=== PATIENT | male | born 1945 | race Hispanic/Latino ===

== ENCOUNTER → 2018-12-10 | Outpatient (CLI) | payer OTHER ==
[~2018-12-10] MED LIST: ACET-2743 PO; ALBU8.5H8 IH; ASPI-555 PO; ATOR40TA69 PO; D-ME118S56 PO; LEVO500T89 PO; LISI-617 PO; METF-444 PO
== END | disposition home or self-care (01) ==
LOC: SHCH 13:36
PROVIDERS: ATTEND Internal Medicine Cardiovascular Disease
DX: I65.23 Occlusion and stenosis of bilateral carotid arteries (principal)
CPT/HCPCS: 93880

== ENCOUNTER 2019-03-11 06:49 | Day surgery (SDC) | payer OTHER ==
[2019-03-11] VITALS (7 sets, daily range): BP systolic 70–95; BP diastolic 44–64
[~2019-03-11] VITALS: Ht 160 cm; Wt 67.1 kg
[~2019-03-11 06:49] MED LIST changes: +SODIUM CHLORIDE 0.9% 1000ML 1,000 ML IV ONE
[2019-03-11] MEDS ORDERED: FERR325T29 PO (07:54)
[2019-03-11] MEDS ORDERED: CILO50TA PO (07:54)
[2019-03-11] MEDS ORDERED: PROPOFOL 1000 MG/100 ML 100 ML IV ONE (09:06)
[2019-03-11] MEDS ORDERED: PHENYLEPHRINE HCL 10 MG/ML 1ML VIAL IV ONE (09:30)
[2019-03-11] MEDS ORDERED: SODIUM CHLORIDE 0.9% 10 ML VIAL ONE (09:30)
== END 2019-03-11 10:10 | disposition home or self-care (01) ==
LOC: ENDO 06:49 → DAH 06:49 → ENDO 10:10
PROVIDERS: ATTEND Internal Medicine Gastroenterology
DX: D12.2 Benign neoplasm of ascending colon (principal); D12.5 Benign neoplasm of sigmoid colon; K29.50 Unspecified chronic gastritis without bleeding; K21.9 Gastro-esophageal reflux disease without esophagitis; D50.9 Iron deficiency anemia, unspecified; K44.9 Diaphragmatic hernia without obstruction or gangrene; K57.30 Diverticulosis of large intestine without perforation or abscess without bleeding; I25.10 Atherosclerotic heart disease of native coronary artery without angina pectoris; E78.5 Hyperlipidemia, unspecified; M19.90 Unspecified osteoarthritis, unspecified site; M81.0 Age-related osteoporosis without current pathological fracture; E11.22 Type 2 diabetes mellitus with diabetic chronic kidney disease; I12.9 Hypertensive chronic kidney disease with stage 1 through stage 4 chronic kidney disease, or unspecified chronic kidney disease; N18.9 Chronic kidney disease, unspecified; K25.9 Gastric ulcer, unspecified as acute or chronic, without hemorrhage or perforation; Z79.84 Long term (current) use of oral hypoglycemic drugs; Z79.899 Other long term (current) drug therapy; Z95.5 Presence of coronary angioplasty implant and graft
CPT/HCPCS: 43239; 45380; 45385; 82948 ×2; 88305; A4606; J2370; J2704; J7030

== ENCOUNTER → 2020-01-18 | Outpatient (CLI) | payer OTHER ==
[~2020-01-18] MED LIST changes: -ALBU8.5H8 IH; -ASPI-555 PO; +ASPI-556 PO; +CILO50TA PO; -D-ME118S56 PO; +FERR325T29 PO; -LEVO500T89 PO; -SODIUM CHLORIDE 0.9% 1000ML 1,000 ML IV ONE
== END | disposition home or self-care (01) ==
LOC: SHCH 15:39
PROVIDERS: ATTEND Internal Medicine Cardiovascular Disease
DX: I10 Essential (primary) hypertension (principal)
CPT/HCPCS: 93306; 93356

== ENCOUNTER → 2020-02-15 | Outpatient (CLI) | payer OTHER | END | disposition home or self-care (01) | LOC: SHCH 13:41 | PROVIDERS: ATTEND Internal Medicine Cardiovascular Disease | DX: R09.89 Other specified symptoms and signs involving the circulatory and respiratory systems (principal) | CPT/HCPCS: 93880 ==

== ENCOUNTER → 2022-06-07 | Outpatient (CLI) | payer OTHER ==
[~2022-06-07] MED LIST changes: -CILO50TA PO; +CILO50TA2 PO; -LISI-617 PO; +LISI5TAB21 PO
== END | disposition home or self-care (01) ==
LOC: SHCH 07:37
PROVIDERS: ATTEND Internal Medicine Cardiovascular Disease
DX: I70.1 Atherosclerosis of renal artery (principal); I71.40 Abdominal aortic aneurysm, without rupture, unspecified; I10 Essential (primary) hypertension; I70.0 Atherosclerosis of aorta; I70.8 Atherosclerosis of other arteries; Z95.828 Presence of other vascular implants and grafts
CPT/HCPCS: 93975; 93978

== ENCOUNTER → 2022-07-30 | Outpatient (CLI) | payer OTHER ==
[2022-07-30 13:03] LABS: ALBUMIN 3.4 g/dL (3.5-5.0); CREATININE 0.9 mg/dL (0.5-1.5); POTASSIUM 3.7 mmol/L (3.5-5.1); TOTAL PROTEIN, SERUM 6.8 g/dL (6.0-8.3)
== END | disposition home or self-care (01) ==
LOC: LAB 10:52
PROVIDERS: ATTEND Internal Medicine Cardiovascular Disease
DX: I10 Essential (primary) hypertension (principal)
CPT/HCPCS: 36415; 80053

== ENCOUNTER → 2022-08-13 | Outpatient (CLI) | payer OTHER ==
[~2022-08-13] MED LIST changes: +IOHEXOL 350 MG/ML 100ML INFUS..BTL IV ONE; +IOHEXOL-350 50ML VIAL IV ONE
[2022-08-13 10:36] LABS: CREATININE 0.9 mg/dL (0.5-1.5)
== END | disposition home or self-care (01) ==
LOC: RAH 09:41
PROVIDERS: ATTEND Internal Medicine Cardiovascular Disease
DX: Q27.1 Congenital renal artery stenosis (principal); I70.8 Atherosclerosis of other arteries; N32.89 Other specified disorders of bladder; M47.815 Spondylosis without myelopathy or radiculopathy, thoracolumbar region
CPT/HCPCS: 75635; 84520; 82565; 36415; Q9967 ×2

== ENCOUNTER → 2023-11-08 | Outpatient (CLI) | payer OTHER ==
[~2023-11-08] MED LIST changes: -IOHEXOL 350 MG/ML 100ML INFUS..BTL IV ONE; -IOHEXOL-350 50ML VIAL IV ONE
[2023-11-08] MEDS: REGADENOSON 0.4 MG/5 ML PF SYG IVP ONE (11:16)
== END | disposition home or self-care (01) ==
LOC: SHCH 08:23
PROVIDERS: ATTEND Internal Medicine Cardiovascular Disease
DX: I25.10 Atherosclerotic heart disease of native coronary artery without angina pectoris (principal); E11.9 Type 2 diabetes mellitus without complications; I10 Essential (primary) hypertension; R07.89 Other chest pain
CPT/HCPCS: 78452; 96374; 93017; J2785; A9500 ×2

== ENCOUNTER 2023-12-02 09:56 | Observation (INO) | payer OTHER ==
[2023-11-29 09:25] LABS: APPEARANCE,URINE CLEAR (CLEAR); BASOPHILS # (AUTO) 0.08 K/uL (0.00-0.20); BASOPHILS % (AUTO) 0.8 % (0.0-5.0); BILIRUBIN,URINE NEGATIVE (NEGATIVE); COLOR,URINE YELLOW (YELLOW); EOSINOPHILS # (AUTO) 0.51 K/uL (0.00-0.70); EOSINOPHILS % (AUTO) 5.3 % (0.0-8.0); GLUCOSE, URINE (UA) NEGATIVE (NEGATIVE); HEMATOCRIT 36.9 % (42-54); IMMATURE GRANULOCYTE ABSOLUTE 0.04 K/uL (0-1); KETONES,URINE NEGATIVE (NEGATIVE); LEUKOCYTE ESTERASE ,URINE NEGATIVE Leu/uL (NEGATIVE); LYMPHOCYTES # (AUTO) 1.8 K/uL (1.0-4.8); LYMPHOCYTES % (AUTO) 18.5 % (21.0-51.0); MEAN CORPUSCULAR HEMOGLOBIN 33.9 pg (27.0-33.0); MEAN CORPUSCULAR HGB CONC 33.1 g/dL (32.0-36.0); MEAN CORPUSCULAR VOLUME 102.5 fL (79-99); MONOCYTES # (AUTO) 0.5 K/uL (0.1-1.0); MONOCYTES % (AUTO) 5.1 % (3.0-13.0); NEUTROPHILS # (AUTO) 6.7 K/uL (1.8-7.7); NEUTROPHILS % (AUTO) 69.9 % (40.0-77.0); NITRATE,URINE NEGATIVE (NEGATIVE); OCCULT BLOOD,URINE NEGATIVE (NEGATIVE); PH,URINE 5.5 (5.0-8.0); PLATELET COUNT (AUTO) 273 K/uL (130-400); PROTEIN,URINE 30 mg/dL (NEGATIVE); RED CELL DISTRIBUTION WIDTH 13.9 % (11.0-15.5); UROBILINOGEN,URINE 0.2 mg/dL (0.2-1.0); WHITE BLOOD COUNT (AUTO) 9.6 K/uL (4.8-10.8)
[2023-11-29 09:28] LABS: ADD UA MICROSCOPIC YES
[2023-11-29 09:30] LABS: POTASSIUM 4.8 mmol/L (3.5-5.1)
[2023-11-29 09:31] LABS: INR <= 0.93 (0.85-1.15); PROTHROMBIN TIME 10.4 SEC (9.6-11.6)
[2023-11-29 09:32] LABS: PARTIAL THROMBOPLASTIN TIME 24.2 SEC (26.3-35.5)
[2023-11-29 09:49] VITALS: BP 130/59; PULSE 62; RESP 16
[2023-11-29 09:49] LABS: BACTERIA,URINE FEW /HPF (None Seen); MUCUS,URINE FEW LPF (None Seen); RBC,URINE 0-1 /HPF (0-1); SQUAMOUS EPITHELIAL CELL,UR RARE /HPF (0-2)
[2023-11-29 09:52] LABS: B-TYPE NATRIURETIC PEPTIDE 28 pg/mL (0-100)
[2023-12-02] VITALS (20 sets, daily range): BP systolic 88–146; BP diastolic 36–71; PULSE 62–78; RESP 14–18; O2SAT 95
[~2023-12-02] VITALS: Ht 160 cm; Wt 61.2 kg
[~2023-12-02 09:56] MED LIST changes: -ACET-2743 PO; +CILO100T3 PO; -CILO50TA2 PO; +CLOP75TA32 PO; -FERR325T29 PO; +METO-408 PO; +TYLENOL ARTHRITIS PO
[2023-12-02] MEDS: 0.9%NACL 1000ML 1,000 ML IV ONE (14:03)
[2023-12-02] MEDS ORDERED: SODIUM BICARB 50MEQ 50ML VIAL 50 ML ONE (14:33)
[2023-12-02] MEDS ORDERED: LIDOCAINE HCL 400MG/20ML VIAL ONE (14:33)
[2023-12-02] MEDS ORDERED: NITROGLYCERIN 50MG VIAL ONE (14:34)
[2023-12-02] MEDS ORDERED: IODIXANOL 320 MG/ML 100 ML VIAL ONE (14:34)
[2023-12-02] MEDS ORDERED: HEPARIN 10,000 UNIT/10ML (1,000 UNIT/ML) VIAL ONE (14:34)
[2023-12-02] MEDS ORDERED: MEPERIDINE-PF 25 MG/ML SYG ONE ×3 (15:13→16:43)
[2023-12-02] MEDS ORDERED: MIDAZOLAM HCL 1 MG/ML 2ML VIAL ONE ×3 (15:14→16:43)
[2023-12-02] MEDS ORDERED: NICARDIPINE 25MG INJ IV ONE (15:27)
[2023-12-02] MEDS ORDERED: HYDRALAZINE 20MG/ML VIAL ONE (16:49)
[2023-12-02] MEDS ORDERED: ACETAMINOPHEN 325 MG TAB PO PRN (17:30)
[2023-12-02] MEDS ORDERED: TYLENOL ARTHRITIS PO PRN (17:30)
[2023-12-02] MEDS ORDERED: DEXTROSE 50%-WATER 50 ML DISP.SYRIN IV PRN (17:30)
[2023-12-02] MEDS ORDERED: GLUCAGON 1MG KIT 1 MG ML IM PRN (17:30)
[2023-12-02] MEDS: ATROPINE 1MG SYG IVP ONE (20:44)
[2023-12-02] MEDS: INSULIN HUMULIN R 100 UNIT/ML 3ML SQ SCH (20:59)
[2023-12-02] MEDS: 0.9%NACL 1000ML 1,000 ML IV SCH (22:45)
[2023-12-02] MEDS: CILOSTAZOL 100 MG TAB PO SCH (22:45)
[2023-12-02] MEDS: ATORVASTATIN 40 MG TABLET PO SCH (22:45)
[2023-12-03 03:14] VITALS: BP 98/47; PULSE 80; RESP 18
[2023-12-03 03:55] LABS: HEMATOCRIT 31.8 % (42-54); MEAN CORPUSCULAR HEMOGLOBIN 34.7 pg (27.0-33.0); MEAN CORPUSCULAR HGB CONC 34.3 g/dL (32.0-36.0); MEAN CORPUSCULAR VOLUME 101.3 fL (79-99); RED BLOOD CELL COUNT(AUTO) 3.14 MIL/uL (4.50-6.20); RED CELL DISTRIBUTION WIDTH 13.9 % (11.0-15.5); WHITE BLOOD COUNT (AUTO) 10.3 K/uL (4.8-10.8)
[2023-12-03 04:33] LABS: ALBUMIN 2.4 g/dL (3.5-5.0); BILIRUBIN,TOTAL 0.4 mg/dL (0.2-1.0); CREATININE 0.9 mg/dL (0.5-1.3); POTASSIUM 3.8 mmol/L (3.5-5.1); TOTAL PROTEIN, SERUM 5.1 g/dL (6.0-8.3)
[2023-12-03 09:19] VITALS: BP 108/55; PULSE 85; RESP 18
[2023-12-03 09:20] VITALS: O2SAT 96
[2023-12-03] MEDS: ASPIRIN 81 MG EC TAB PO SCH (09:23)
[2023-12-03] MEDS: METOPROLOL SUCCINATE 25 MG TAB.SR.24H PO SCH (09:23)
[2023-12-03] MEDS: CLOPIDOGREL 75MG TAB PO SCH (09:23)
[2023-12-03] MEDS: LISINOPRIL 5 MG TABLET PO SCH (09:23)
[2023-12-03 12:18] VITALS: BP 189/58; PULSE 77; RESP 18
== END 2023-12-03 16:29 | disposition home or self-care (01) ==
LOC: DAH 09:56 → DAHIP 09:57 → DAH 09:57 → 2DH 20:14
PROVIDERS: ADMIT Internal Medicine Pulmonary Disease; ATTEND Internal Medicine Pulmonary Disease
DX: I74.5 Embolism and thrombosis of iliac artery (principal); I82.522 Chronic embolism and thrombosis of left iliac vein; I35.0 Nonrheumatic aortic (valve) stenosis; I70.8 Atherosclerosis of other arteries; I25.10 Atherosclerotic heart disease of native coronary artery without angina pectoris; E11.51 Type 2 diabetes mellitus with diabetic peripheral angiopathy without gangrene; F17.200 Nicotine dependence, unspecified, uncomplicated; I10 Essential (primary) hypertension; Z98.61 Coronary angioplasty status; Z79.899 Other long term (current) drug therapy
CPT/HCPCS: 80048; 83880; 85025; 85610; 85730 ×2; 81001; 36415 ×3; 71045; 93005; 75625; 37221; 37223; 85347 ×2; 82948 ×5; 76705; 80053; 85027; C1887 ×2; C1769 ×3; C1894 ×4; C1874; C1893 ×2; C1725; C1876 ×3; G0378 ×23; J3490 ×4; J7030; J0360; J1644 ×3; J2250 ×3; J2175 ×3; Q9967; A4215; A4223 ×3; A4222; A4221; A4663; A4216; A4606; 99156; 99157; J0461

== ENCOUNTER 2024-05-08 18:19 | Inpatient (IN) | payer OTHER ==
[~2024-05-08] VITALS: Ht 160 cm; Wt 63.1 kg
--- NOTE | 2024-05-08 18:34 | ERN ---
ED Note History of Present Illness Stated Complaint: FEVER Chief Complaint: Generalized Body Aches Time Seen by MD: 18:21 Time Seen by Midlevel: 18:21 Dictation: The patient is a 79-year-old male with a history of hypertension, diabetes, hyperlipidemia, BPH who presents to the emergency department with complaints of generalized body weakness, chills, body aches onset 2:30 p.m.. Patient's right reports she thought patient had a fever so she gave Tylenol and patient is started to sweat after a it. Patient denies any nausea, vomiting, diarrhea, cough, urinary discomfort, shortness of breath. Allergies: Coded Allergies: No Known Drug Allergies (Unverified Allergy, Unknown, 04/28/14) Home Meds Reported Medications [Tylenol Arthritis] No Conflict Check, 2 TAB PO AD PRN for PAIN 11/29/23 Cilostazol (Cilostazol) 100 Mg Tablet, 100 MG PO BID, TAB 11/29/23 Clopidogrel Bisulfate (Clopidogrel) 75 Mg Tablet, 75 MG PO AM, TAB 11/29/23 Metoprolol Succinate (Metoprolol Succinate) 25 Mg Tab.er.24h, 25 MG PO AM, TAB 11/29/23 Lisinopril (Lisinopril) 5 Mg Tablet, 5 MG PO AM, TAB 03/11/17 Aspirin (Aspir 81) 81 Mg Tablet.dr, 81 MG PO AM, TAB 03/11/17 Atorvastatin Calcium (LIPITOR) 40 Mg Tablet, 40 MG PO HS, TAB 03/11/17 Metformin HCl (Metformin HCl) 500 Mg Tablet, 500 MG PO BID, TAB 03/11/17 Past Medical History Past Medical History: Diabetes-Type II, High Cholesterol, Hypertension, Prostatitis Surgical History: Other Surgical History Other: ABDOMINAL SX. AND STENTS IN LEGS AND CAROTID. RN Note Reviewed/Agreed w/PFSH: Yes Review of System Dictation Constitutional: Negative for weight loss. Positive for fever, chills Eyes: Negative for injury, pain,redness, and discharge ENT: Negative for injury,pain or swelling Cardiovascular: Negative for chest pain, palpitations, and edema Respiratory: Negative for shortness of breath, cough, and wheezing, Abdomen/GI: Negative for abdominal pain, nausea, vomiting, diarrhea, and constipation Back: Negative for injury and pain : Negative for injury, bleeding and discharge MS/Extremity: Negative for injury and deformity Skin: Negative for rash, and discoloration Neuro: Negative for headache, numbness, tingling, and seizure positive for generalized weakness Psych: Negative for suicide ideation, homicidal ideation, and hallucinations Initial Vital Sign VS Vital Signs Date Time Temp Pulse Resp B/P (MAP) Pulse Ox O2 Delivery O2 Flow Rate FiO2 05/08/24 18:21 99.1 82 20 145/51 99 0 05/08/24 19:20 Room Air* 21 Physical Exam Dictation Vital Signs reviewed General Appearance: Alert, oriented x 3, no acute distress, well developed, nourished. Head and Face: non-traumatic. Eyes: PERRL, pink conjunctivas, eyelid no trauma, anterior chamber with arcus senilis. Ears: Pinnas intact and no signs of trauma or erythema ear canals clear and no discharge TM no erythema Nose: No discharge, no bleeding. Oropharynx: Mouth normal, tongue pink. pharynx clear,no erythema, tonsils no exudates, no abscesses noted, mucous membrane moist Neck: Supple, non-tender, no thyromegaly, no masses, no JVD, no bruits Breast:Deferred Chest:No tenderness, no crepitus, no paradoxical movement, no retractions Lungs:Clear, well-ventilated, symmetric, no rales, no wheezing, no rhonchi, no stridor, good breath sounds bilaterally Heart: Regular rate, regular rhythm, no murmur, no gallops Vascular: no peripheral edema, Abdomen: Soft, positive bowel sounds, nondistended, no guarding, nontender, no rebound, no masses no hepatomegaly, no splenomegaly, no Morales's sign, no hernias. Rectal: Deferred Genital: Deferred Neurological: Normal speech, motor function intact, sensory function intact Musculoskeletal: Neck nontender, full range of motion, back nontender, full range of motion, Extremities: nontender, full range of motion Skin: Color pink, dry, no turgor, no rash, no lacerations, no abrasions, no contusions. Lymphatic: Deferred Results (Laboratory/Radiology) Laboratory/Radiology Laboratory Tests Test 05/08/24 18:45 05/08/24 18:58 05/08/24 19:48 White Blood Count 22.0 K/uL (4.8-10.8) H Red Blood Count 3.46 MIL/uL (4.50-6.20) L Hemoglobin 11.4 g/dL (14.0-18.0) L Hematocrit 34.4 % (42-54) L Mean Corpuscular Volume 99.4 fL (79-99) H Mean Corpuscular Hemoglobin 32.9 pg (27.0-33.0) Mean Corpuscular Hemoglobin Concent 33.1 g/dL (32.0-36.0) Red Cell Distribution Width 14.3 % (11.0-15.5) Platelet Count 257 K/uL (130-400) Mean Platelet Volume 9.2 fL (7.5-10.5) Immature Granulocyte % (Auto) 0.5 % (0-1) Neutrophils (%) (Auto) 71.1 % (40.0-77.0) Lymphocytes (%) (Auto) 3.3 % (21.0-51.0) L Monocytes (%) (Auto) 6.0 % (3.0-13.0) Eosinophils (%) (Auto) 18.7 % (0.0-8.0) H Basophils (%) (Auto) 0.4 % (0.0-5.0) Neutrophils # (Auto) 15.7 K/uL (1.8-7.7) H Lymphocytes # (Auto) 0.7 K/uL (1.0-4.8) L Monocytes # (Auto) 1.3 K/uL (0.1-1.0) H Eosinophils # (Auto) 4.11 K/uL (0.00-0.70) H Basophils # (Auto) 0.09 K/uL (0.00-0.20) Absolute Immature Granulocyte (auto 0.11 K/uL (0-1) Segmented Neutrophils % 88 % (40-70) H Band Neutrophils % 7 % (0-2) H Lymphocytes % (Manual) 3 % (22-44) L Monocytes % (Manual) 2 % (2-9) Nucleated Red Blood Cells 0.0 % (0.0-0.19) Differential Comment MANUAL DIFFERENTIAL White Cell Morphology Comment Platelet Morphology Comment ADEQUATE Red Blood Cell Morphology ANISO 1+ Sodium Level 135 mmol/L (136-145) L Potassium Level 4.0 mmol/L (3.5-5.1) Chloride Level 99 mmol/L (101-111) L Carbon Dioxide Level 26 mmol/L (21-32) Blood Urea Nitrogen 10 mg/dL (7-18) Creatinine 1.1 mg/dL (0.5-1.3) Glomerular Filtration Rate Calc 69 mL/min (>90) Random Glucose 150 mg/dL (70-105) H Lactic Acid Level 3.1 mmol/L (0.8-2.5) H Total Calcium 8.4 mg/dL (8.5-10.1) L Troponin I High Sensitivity 23 ng/L (4-75) B-Type Natriuretic Peptide 42 pg/mL (0-100) Procalcitonin 0.41 ng/mL (0.05-0.5) Influenza Type A Antigen Negative For Type A Influenza Type B Antigen Negative For Type B SARS-CoV-2 Antigen (Rapid) PRESUMPTIVE NEGATIVE Urine Color LIGHT-YELLOW (YELLOW) Urine Appearance CLEAR (CLEAR) Urine pH 5.5 (5.0-8.0) Urine Specific [place] 1.012 (1.001-1.031) Urine Protein 10 mg/dL (NEGATIVE) H Urine Glucose (UA) NEGATIVE mg/dL (NEGATIVE) Urine Ketones NEGATIVE mg/dL (NEGATIVE) Urine Occult Blood NEGATIVE (NEGATIVE) Urine Nitrate NEGATIVE (NEGATIVE) Urine Bilirubin NEGATIVE mg/dL (NEGATIVE) Urine Urobilinogen 0.2 mg/dL (0.2-1.0) Urine Leukocyte Esterase NEGATIVE Hans[place]/uL Urine RBC None /HPF (0-1) Urine WBC 0-1 /HPF (0-1) Urine Squamous Epithelial Cells RARE /HPF (0-2) Urine Bacteria None /HPF (None Seen) REASON: sob ORDERING PHYSICIAN: SHAE PATTON [facility] PROCEDURE: CXR1VW - CHEST 1VW CHEST 1VW HISTORY: Shortness of breath COMPARISON: 11/29/2023 FINDINGS: A frontal projection of the chest was obtained. Prominent interstitial markings are seen with possible superimposed infiltrates. The heart is normal in size. Degenerative changes are seen aortic calcifications are seen. IMPRESSION: 1. Prominent interstitial markings are seen with possible superimposed infiltrates. Labs Reviewed?: Yes EKG: (+) rhythm (Sinus rhythm), (+) AL (124), (+) QRS (93) EKG Comment: EKG 05/08/2024 1855 ventricular rate 86, regular rate and rhythm, PACs, nonspecific T-wave abnormalities, low voltage, no STEMI ED Course ED Course Orders Procedure Category Date Status Time Cbc With Differential LAB 05/08/24 Complete 18:29 Troponin I High LAB 05/08/24 Complete Sensitivity 18:29 Urinalysis Profile LAB 05/08/24 Complete 18:29 12 Lead Ekg Tracing- EKG 05/08/24 Resulted Technical 18:29 0.9%Nacl 1000ml (Ns PHA 05/08/24 In Process 1000ml) 18:30 Basic Metabolic Panel LAB 05/08/24 Complete 18:29 B-Type Natriuretic LAB 05/08/24 Complete Peptide 18:29 Chest 1vw RAD 05/08/24 Resulted 18:29 Covid19 (Sars Antigen LAB 05/08/24 Complete Rapid) 18:29 Influenza Type A & B, LAB 05/08/24 Complete Rapid 18:29 Lactic Acid LAB 05/08/24 Complete 18:29 Blood Cult TILA 05/08/24 In Process 19:25 Procalcitonin LAB 05/08/24 Complete 19:25 Ceftriaxone 2gm Vial PHA 05/08/24 Complete (Rocephin 2gm Inj) 19:30 0.9%Nacl 1000ml (Ns PHA 05/08/24 Complete 1000ml) 19:30 *Nursing CPOE 05/08/24 Transmitted Communication: 19:29 Manual Differential LAB 05/08/24 Complete 18:45 Azithromycin 500mg+Ns PHA 05/08/24 In Process 250ml (Azithromyci 20:30 Current Medications Medications (Trade) Dose Ordered Sig/Fletcher Route PRN Reason Start Time Stop Time Status Last Admin Dose Admin Azithromycin 250 ml @ 125 mls/hr ONCE ONCE IV 05/08/24 20:30 05/08/24 22:29 Ceftriaxone Sodium (Rocephin 2gm Inj) 2 gm ONCE ONCE IVPB 05/08/24 19:30 05/08/24 19:31 DC 05/08/24 19:42 Sodium Chloride 1,000 ml @ 0 mls/hr ONCE ONCE IV 05/08/24 19:30 05/08/24 19:31 DC 05/08/24 19:37 Sodium Chloride 1,000 ml @ 125 mls/hr ONCE ONCE IV 05/08/24 18:30 05/09/24 02:29 05/08/24 19:18 Vital Signs Date Time Temp Pulse Resp B/P (MAP) Pulse Ox O2 Delivery O2 Flow Rate FiO2 05/08/24 20:20 99.1 90 20 122/54 98 Room Air* 0 21 05/08/24 19:20 100.2 80 20 130/47 97 Room Air* 0 21 05/08/24 18:21 99.1 82 20 145/51 99 0 Medical Decision Making [facility] MDM: The patient is a 79-year-old male with a history of hypertension, diabetes, hyperlipidemia, BPH who presents to the emergency department with complaints of generalized body weakness, chills, body aches onset 2:30 p.m.. Patient's right reports she thought patient had a fever so she gave Tylenol and patient is started to sweat after a it. Patient denies any nausea, vomiting, diarrhea, cough, urinary discomfort, shortness of breath. Differential diagnosis: Sepsis, flu, pneumonia, UTI, electrolyte imbalance, dehydration, ACS CBC showed leukocytosis, microcytic anemia, chemistry showed mild hyponatremia, hypochloremia, lactic acid 3.1, urinalysis unremarkable, chest x-ray showed some pulmonary infiltrates. Patient will be admitted for further management. Started on Rocephin and azithromycin. Patient received2 L of fluids in the ER. Comorbidities: Diabetes, hyperlipidemia, hypertension, BPH Tests considered and not ordered secondary to shared decision making include: none Previous outside records reviewed: none Risk of complication and/or morbidity or mortality of patient management: The patient meets criteria for admission. Need for emergency major/minor surgery: No There are no social concerns with this patient. I independently interpreted the tests I ordered (labs, urinalysis, etc.). I discussed the case with the hospitalist for admission. Carole who accepts admission. I discussed the case with the following specialists: none. Historian: pateint. I independently interpreted imaging studies and EKGs that I ordered (US, CT, XR, EKG, etc.). External chart review: none. Medical management and examination interpretation discussions were had by me with other qualified healthcare professionals as indicated for the patient's care. DX & DISP Disposition: Inpatient Decision to Admit Date: May 08, 2024 Decision to Admit Time: 20:53 Departure Impression: Primary Impression: Sepsis Additional Impressions: Leukocytosis, Anemia, Hypochloremia, Hyponatremia, Weakness, Pneumonia, Elevated lactic acid level Condition: Stable Referrals: NIGEL LEON MD (PCP) I have reviewed the case, and I agree with, Diagnosis and Plan SHAE PATTON [facility] May 08, 2024 18:34
[2024-05-08 18:51] LABS: BASOPHILS # (AUTO) 0.09 K/uL (0.00-0.20); BASOPHILS % (AUTO) 0.4 % (0.0-5.0); EOSINOPHILS # (AUTO) 4.11 K/uL (0.00-0.70); EOSINOPHILS % (AUTO) 18.7 % (0.0-8.0); HEMATOCRIT 34.4 % (42-54); IMMATURE GRANULOCYTE ABSOLUTE 0.11 K/uL (0-1); LYMPHOCYTES # (AUTO) 0.7 K/uL (1.0-4.8); LYMPHOCYTES % (AUTO) 3.3 % (21.0-51.0); MEAN CORPUSCULAR HEMOGLOBIN 32.9 pg (27.0-33.0); MEAN CORPUSCULAR HGB CONC 33.1 g/dL (32.0-36.0); MEAN CORPUSCULAR VOLUME 99.4 fL (79-99); MONOCYTES # (AUTO) 1.3 K/uL (0.1-1.0); NEUTROPHILS # (AUTO) 15.7 K/uL (1.8-7.7); NEUTROPHILS % (AUTO) 71.1 % (40.0-77.0); PLATELET COUNT (AUTO) 257 K/uL (130-400); RED BLOOD CELL COUNT(AUTO) 3.46 MIL/uL (4.50-6.20); RED CELL DISTRIBUTION WIDTH 14.3 % (11.0-15.5)
--- NOTE | 2024-05-08 18:57 | EKG ---
[facility] Test Date: 2024-05-08 Test Time: 18:55:00 Pat Name: JOSUE MCCLELLAN Department: ED Room: Gender: M Title Coordinator: [id number] : 1945 Requested By: SHAE PATTON Order Number: [id number] Reading MD: Saqib Winter Measurements Intervals [place] Rate: 86 P: 99 NH: 124 QRS: 84 QRSD: 93 T: 128 QT: 435 QTc: 491 Interpretive Statements Sinus rhythm Atrial premature complexes Nonspecific T abnormalities, lateral leads Compared to ECG 11/29/2023 08:09:41 Atrial premature complex(es) now present T-wave abnormality still present Electronically Signed On 05-08-2024 19:09:26 CAPTAIN/AIRLINE PILOT by Saqib Winter Please click the below link to view image of tracing.
[2024-05-08 19:01] LABS: CREATININE 1.1 mg/dL (0.5-1.3)
[2024-05-08] MEDS: 0.9%NACL 1000ML 1,000 ML IV ONE ×2 (19:18→19:37)
[2024-05-08 19:26] LABS: B-TYPE NATRIURETIC PEPTIDE 42 pg/mL (0-100)
[2024-05-08 19:36] LABS: COVID19 (SARS ANTIGEN RAPID) PRESUMPTIVE NEGATIVE (NEGATIVE); INFLUENZA TYPE A Negative For Type A (NEGATIVE); INFLUENZA TYPE B Negative For Type B (NEGATIVE)
[2024-05-08] MEDS: CEFTRIAXONE 2GM VIAL IVPB ONE (19:42)
--- NOTE | 2024-05-08 19:50 | HMCIMG ---
CHEST 1VW HISTORY: Shortness of breath COMPARISON: 11/29/2023 FINDINGS: A frontal projection of the chest was obtained. Prominent interstitial markings are seen with possible superimposed infiltrates. The heart is normal in size. Degenerative changes are seen aortic calcifications are seen. IMPRESSION: 1. Prominent interstitial markings are seen with possible superimposed infiltrates.
[2024-05-08 19:55] LABS: BAND NEUTROPHILS % (MANUAL) 7 % (0-2); LYMPHOCYTES % (MANUAL) 3 % (22-44); MONOCYTES % (MANUAL) 2 % (2-9); SEGMENTED NEUTROPHILS % 88 % (40-70); TOTAL CELLS COUNTED 100
[2024-05-08 19:56] LABS: MAN.DIFF COMMENT-IMPRESSION MANUAL DIFFERENTIAL
[2024-05-08 20:07] LABS: PLATELET MORPHOLOGY COMMENT ADEQUATE
[2024-05-08 20:18] LABS: APPEARANCE,URINE CLEAR (CLEAR); BILIRUBIN,URINE NEGATIVE (NEGATIVE); COLOR,URINE LIGHT-YELLOW (YELLOW); GLUCOSE, URINE (UA) NEGATIVE (NEGATIVE); KETONES,URINE NEGATIVE (NEGATIVE); LEUKOCYTE ESTERASE ,URINE NEGATIVE Leu/uL (NEGATIVE); NITRATE,URINE NEGATIVE (NEGATIVE); OCCULT BLOOD,URINE NEGATIVE (NEGATIVE); PH,URINE 5.5 (5.0-8.0); PROTEIN,URINE 10 mg/dL (NEGATIVE); UROBILINOGEN,URINE 0.2 mg/dL (0.2-1.0)
[2024-05-08 20:19] LABS: ADD UA MICROSCOPIC YES
[2024-05-08 20:24] LABS: MUCUS,URINE RARE LPF (None Seen); SQUAMOUS EPITHELIAL CELL,UR RARE /HPF (0-2); WBC,URINE 0-1 /HPF (0-1)
[2024-05-08] MEDS: AZITHROMYCIN 500MG+NS 250ML 250 ML IV ONE (21:29)
[2024-05-08] MEDS ORDERED: acetaMINOPHEN 325 MG TAB PO PRN (21:30)
[2024-05-08] MEDS: cefTRIAXone 1G VIAL IVPB SCH (21:30)
[2024-05-08] MEDS ORDERED: ondanSETRON 4MG TABLET PO PRN (21:30)
[2024-05-08 23:50] VITALS: BP 116/58; PULSE 81; RESP 18; TEMP 98.4; O2SAT 98
[2024-05-09] VITALS (8 sets, daily range): BP systolic 113–143; BP diastolic 54–74; PULSE 75–124; RESP 18–19; TEMP 98.2–99.4; O2SAT 97
[2024-05-09 05:22] LABS: BASOPHILS # (AUTO) 0.09 K/uL (0.00-0.20); BASOPHILS % (AUTO) 0.5 % (0.0-5.0); EOSINOPHILS % (AUTO) 0.5 % (0.0-8.0); HEMATOCRIT 29.5 % (42-54); IMMATURE GRANULOCYTE ABSOLUTE 0.11 K/uL (0-1); LYMPHOCYTES # (AUTO) 1.8 K/uL (1.0-4.8); MEAN CORPUSCULAR HEMOGLOBIN 32.7 pg (27.0-33.0); MEAN CORPUSCULAR HGB CONC 32.5 g/dL (32.0-36.0); MEAN CORPUSCULAR VOLUME 100.3 fL (79-99); MONOCYTES # (AUTO) 0.9 K/uL (0.1-1.0); MONOCYTES % (AUTO) 4.7 % (3.0-13.0); NEUTROPHILS # (AUTO) 16.8 K/uL (1.8-7.7); NEUTROPHILS % (AUTO) 84.7 % (40.0-77.0); PLATELET COUNT (AUTO) 222 K/uL (130-400); RED BLOOD CELL COUNT(AUTO) 2.94 MIL/uL (4.50-6.20); RED CELL DISTRIBUTION WIDTH 14.3 % (11.0-15.5); WHITE BLOOD COUNT (AUTO) 19.8 K/uL (4.8-10.8)
[2024-05-09 05:46] LABS: ALBUMIN 2.4 g/dL (3.5-5.0); BILIRUBIN,TOTAL 0.3 mg/dL (0.2-1.0); CREATININE 0.8 mg/dL (0.5-1.3); MAGNESIUM 1.6 mg/dL (1.80-2.40); POTASSIUM 3.7 mmol/L (3.5-5.1); TOTAL PROTEIN, SERUM 5.4 g/dL (6.0-8.3)
[2024-05-09] MEDS: INSULIN LISpro 100 UNIT/ML 3ML SQ SCH (06:36)
[2024-05-09] MEDS: DOXYCYCLINE HYCLATE 100 MG TABLET PO SCH (08:35)
[2024-05-09] MEDS ORDERED: ASPI-1005 PO (08:37)
[2024-05-09] MEDS ORDERED: CLOP75TA32 PO (08:38)
[2024-05-09] MEDS ORDERED: METF-910 PO (08:38)
[2024-05-09] MEDS ORDERED: ATOR40TA71 PO (08:38)
[2024-05-09] MEDS ORDERED: METO-408 PO (08:46)
[2024-05-09] MEDS ORDERED: LISI5TAB21 PO (08:47)
[2024-05-09] MEDS ORDERED: CILO50TA2 PO (08:48)
--- NOTE | 2024-05-09 13:42 | HMCIMG ---
CT CHEST W/O CONTRAST HISTORY: Cough COMPARISON: None TECHNIQUE: Multiple sequential axial images of the chest were obtained from the thoracic inlet through upper abdomen. Patient was not given contrast through intravenous route. FINDINGS: There is nodular densities in the right midlung posteriorly measuring 10 mm may be related to pulmonary nodule versus infiltrates. COPD changes are seen. There is left lower lobe pulmonary nodule measuring 2. 2 x 2 centimeter. Bilateral lower lobe pulmonary infiltrates are seen with left more than right. Coronary arterial calcifications are seen. No pleural effusion or pericardial effusion is seen. There is no evidence of pneumothorax. There are normal size mediastinal and hilar lymph nodes. The heart is not enlarged. Degenerative changes of the thoracolumbar spine are present. There is no evidence of adrenal nodule. IMPRESSION: 1. There is nodular densities in the right midlung posteriorly measuring 10 mm may be related to pulmonary nodule versus infiltrates. COPD changes are seen. There is left lower lobe pulmonary nodule measuring 2. 2 x 2 centimeter. Bilateral lower lobe pulmonary infiltrates are seen with left more than right. Coronary arterial calcifications are seen. CT was performed with one or more following dose reduction techniques: automated exposure control, adjustment of the mA and kv according to patient's size, or use of a iterative reconstruction technique.
[2024-05-09] MEDS: SODIUM CHLORIDE 3% FOR INHALATION 4 ML/AMP VIAL.NEB IH ONE (14:29)
[2024-05-09] MEDS: CILOstazol 100 MG TAB PO SCH (17:32)
[2024-05-09] MEDS: metFORmin HCL 500 MG TAB.SR.24H PO SCH (20:58)
--- NOTE | 2024-05-09 23:20 | HP ---
HISTORY AND PHYSICAL DATE OF SERVICE: 05/08/2024 PRESENTING COMPLAINT: Fever and cough. HISTORY OF PRESENT ILLNESS: A 79-year-old male with history of chronic tobacco use, hypertension, diabetes mellitus, presented to the hospital with cough, fever and chills. The patient's T-max in the Emergency Room was 100.2. Symptoms started 3 days ago. Cough is productive of greenish sputum, but no hemoptysis or pleuritic pain. The patient's WBC on admission was 20,000. Chest x-ray shows infiltrates. No weight loss or night sweats. Denies sick contact. PAST MEDICAL HISTORY: * Hypertension. * Diabetes mellitus. * Dyslipidemia. * Obesity. * BPH. * Peripheral vascular disease. * Chronic tobacco use. PAST SURGICAL HISTORY: * Abdominal surgery. * Stenting of lower extremities. * Stenting of carotid artery. ALLERGIES: No known drug allergies. HOME MEDICATIONS: Reviewed. SOCIAL HISTORY: Denies alcohol use. Lives with . FAMILY HISTORY: Positive for diabetes mellitus. REVIEW OF SYSTEMS: CONSTITUTIONAL: Positive for fever, no chills, no weight loss or night sweats. EYES: No eye pain, no photophobia. HENT: No sore throat, no rhinorrhea or earache. NECK: No neck pain or neck swelling. RESPIRATORY: Positive for cough with greenish sputum. No hemoptysis or pleuritic pain. CARDIOVASCULAR: No chest pain, no palpitation or orthopnea. GASTROINTESTINAL: No nausea, vomiting or abdominal pain. GENITOURINARY: No dysuria, urgency or urinary frequency. CENTRAL NERVOUS SYSTEM: No headache, dyspnea or slurred speech. PSYCHIATRY: No depression. No suicidal ideation. MUSCULOSKELETAL: No joint pain or joint swelling. PHYSICAL EXAMINATION: GENERAL: Elderly male, awake, not in distress, afebrile to touch. VITAL SIGNS: Temperature 100.3, pulse 80, respiratory rate 20, BP 130/77. EYES: No icterus. Pupils equal and reactive. HENT: No oral thrush seen. Moist oral mucosa. NECK: Supple, no JVD or thyromegaly. LUNGS: Good air entry. No rales, no rhonchi. CARDIOVASCULAR: S1, S2 regular. No murmur heard. ABDOMEN: Full, soft, nontender. Bowel sound is present. CENTRAL NERVOUS SYSTEM: Awake, alert, oriented x 3. No focal deficits. SKIN: No rashes, no itchiness. LYMPHATIC: No peripheral lymphadenopathy. BACK: No deformity, no pressure ulcer. MUSCULOSKELETAL: No joint swelling, erythema or tenderness. LABORATORY DATA: Sodium 141, potassium 3.7, BUN 9, creatinine 0.8. WBC 20.0, hemoglobin 11.4, platelet 257. RADIOLOGY: Chest x-ray shows bilateral pulmonary interstitial marking. ASSESSMENT: A 79-year-old male presenting with fever and cough. CURRENT PROBLEMS: Include: * Sepsis. * Pneumonia. * Diabetes mellitus. * Hypertension. * Chronic tobacco use. * Leukocytosis. PLAN: * Admit the patient to medical floor. * Start the patient on ceftriaxone. * Start the patient on doxycycline. * Obtain CT of the chest without contrast. * Tylenol as needed for pain or fever. * Zofran as needed for nausea and vomiting. * ADA diet. * Insulin sliding scale. * Lovenox for DVT prophylaxis. TID: [id number] RECEIPT: [id number] [facility]
[2024-05-10] VITALS (7 sets, daily range): BP systolic 108–135; BP diastolic 56–70; PULSE 67–82; RESP 16–20; TEMP 98–99.5; O2SAT 97–98
[2024-05-10 05:42] LABS: HEMATOCRIT 28.9 % (42-54); MEAN CORPUSCULAR HEMOGLOBIN 31.6 pg (27.0-33.0); MEAN CORPUSCULAR HGB CONC 32.5 g/dL (32.0-36.0); MEAN CORPUSCULAR VOLUME 97.3 fL (79-99); RED BLOOD CELL COUNT(AUTO) 2.97 MIL/uL (4.50-6.20); RED CELL DISTRIBUTION WIDTH 14.5 % (11.0-15.5)
[2024-05-10 06:01] LABS: CREATININE 0.9 mg/dL (0.5-1.3); MAGNESIUM 1.6 mg/dL (1.80-2.40); POTASSIUM 3.4 mmol/L (3.5-5.1)
[2024-05-10] MEDS: metOPROLol sucCINATE 25 MG TAB.SR.24H PO SCH (09:01)
[2024-05-10] MEDS: LISINOPRIL 5 MG TABLET PO SCH (09:01)
[2024-05-10] MEDS: cloPIDOgrel 75MG TAB PO SCH (09:02)
[2024-05-10] MEDS: ASPIRIN 81MG CHEW TAB PO SCH (09:02)
[2024-05-10] MEDS: atorVAStatin 40 MG TABLET PO SCH (09:03)
--- NOTE | 2024-05-10 15:55 | PN ---
DATE OF SERVICE: 05/09/2024. INFECTIOUS DISEASE FOLLOWUP NOTE SUBJECTIVE: The patient is seen and examined at bedside today. The patient has no fever, no chills. No nausea, no vomiting, no abdominal pain. No bleeding tendency. No palpitation or orthopnea. No rashes or itchiness. Denies joint pain or joint swelling. PHYSICAL EXAMINATION: VITAL SIGNS: Temperature today, 97.6. EYES: No icterus. Pupils equal and reactive. HENT: No oral thrush seen. Moist oral mucosa. NECK: Supple, no JVD or thyromegaly. LUNGS: Good air entry. No rales, no rhonchi. CARDIOVASCULAR: S1, S2 regular. No murmur heard. ABDOMEN: Full, soft, nontender. Bowel sounds present. CENTRAL NERVOUS SYSTEM: Awake, alert, oriented x 3. No focal deficits. SKIN: No rashes, no itchiness. LYMPHATIC: No peripheral lymphadenopathy. BACK: No deformity, no pressure ulcer. ASSESSMENT: A 79-year-old male presented with fever and cough. CURRENT PROBLEMS: Include: * Sepsis. * Pneumonia. * Diabetes mellitus. * Hypertension. * Obesity. * Leukocytosis. * Chronic tobacco use. PLAN: * Continue ceftriaxone. * Continue doxycycline. * Continue pain management. * Continue antihypertensive. * Continue antidiabetic. * Monitor electrolytes. * The patient will follow up closely. TID: [id number] RECEIPT: [id number]
[2024-05-11] VITALS (9 sets, daily range): BP systolic 121–151; BP diastolic 56–75; PULSE 57–76; RESP 17–20; TEMP 98.4–99.5; O2SAT 97–98
[2024-05-11 05:02] LABS: HEMATOCRIT 29.7 % (42-54); MEAN CORPUSCULAR HEMOGLOBIN 32.2 pg (27.0-33.0); MEAN CORPUSCULAR HGB CONC 32.3 g/dL (32.0-36.0); MEAN CORPUSCULAR VOLUME 99.7 fL (79-99); RED BLOOD CELL COUNT(AUTO) 2.98 MIL/uL (4.50-6.20); RED CELL DISTRIBUTION WIDTH 14.2 % (11.0-15.5); WHITE BLOOD COUNT (AUTO) 9.6 K/uL (4.8-10.8)
[2024-05-11 05:34] LABS: CREATININE 0.8 mg/dL (0.5-1.3); MAGNESIUM 1.5 mg/dL (1.80-2.40); POTASSIUM 3.4 mmol/L (3.5-5.1)
--- NOTE | 2024-05-11 14:08 | CONS ---
CONSULT NOTE: A 79-year-old male with history of chronic tobacco use, hypertension, diabetes mellitus, presented to the hospital with cough, fever and chills. The patient's T-max in the Emergency Room was 100.2. Symptoms started 3 days ago. Cough is productive of greenish sputum, but no hemoptysis or pleuritic pain. The patient's WBC on admission was 20,000. Chest x-ray shows infiltrates. No weight loss or night sweats. Denies sick contact. CT scan of the chest showed nodular density in the mid lung 1.0 cm. There was left lower lobe nodule 2.2 cm. There was bilateral infiltration with sign of COPD. This patient improved significantly and is sitting in the side of the bed with family member in the room. Patient continued to have cough not much productive according to him. There is no blood in the phlegm. PAST MEDICAL HISTORY: * Hypertension. * Diabetes mellitus. * Dyslipidemia. * Obesity. * BPH. * Peripheral vascular disease. * Chronic tobacco use. PAST SURGICAL HISTORY: * Abdominal surgery. * Stenting of lower extremities. * Stenting of carotid artery. ALLERGIES: No known drug allergies. HOME MEDICATIONS: Reviewed. SOCIAL HISTORY: Denies alcohol use. Lives with . FAMILY HISTORY: Positive for diabetes mellitus. REVIEW OF SYSTEMS: CONSTITUTIONAL: Positive for fever, no chills, no weight loss or night sweats. EYES: No eye pain, no photophobia. HENT: No sore throat, no rhinorrhea or earache. NECK: No neck pain or neck swelling. RESPIRATORY: Positive for cough with greenish sputum. No hemoptysis or pleuritic pain. CARDIOVASCULAR: No chest pain, no palpitation or orthopnea. GASTROINTESTINAL: No nausea, vomiting or abdominal pain. GENITOURINARY: No dysuria, urgency or urinary frequency. CENTRAL NERVOUS SYSTEM: No headache, dyspnea or slurred speech. PSYCHIATRY: No depression. No suicidal ideation. MUSCULOSKELETAL: No joint pain or joint swelling. PHYSICAL EXAMINATION: GENERAL: Elderly male, awake, not in distress, afebrile to touch. VITAL SIGNS: Temperature 100.3, pulse 80, respiratory rate 20, BP 130/77. EYES: No icterus. Pupils equal and reactive. HENT: No oral thrush seen. Moist oral mucosa. NECK: Supple, no JVD or thyromegaly. LUNGS: Good air entry. No rales, no rhonchi. CARDIOVASCULAR: S1, S2 regular. No murmur heard. ABDOMEN: Full, soft, nontender. Bowel sound is present. CENTRAL NERVOUS SYSTEM: Awake, alert, oriented x 3. No focal deficits. SKIN: No rashes, no itchiness. LYMPHATIC: No peripheral lymphadenopathy. BACK: No deformity, no pressure ulcer. MUSCULOSKELETAL: No joint swelling, erythema or tenderness. Assessment 1. CT scan showing multiple nodule to the lung especially left more than right. There was also some infiltration on the lung which could be due to pneumonia. This patient is a heavy smoker. 2. COPD 3. Hypertension 4. Diabetes mellitus 5. Pneumonia 6. Peripheral vascular disease 7. Sepsis Plan 1.I reviewed the result of CT scan with the patient and family member. I told the patient that he have pneumonia at this time and he will be treated with antibiotic treatment. 2. This patient will be evaluated by CT scan or PET CT scan to be done in 6-8 weeks. If the patient continues to have nodule then we will do biopsy at that time. Differential diagnosis for this patient could be pneumonia versus metastatic disease versus primary lung cancer especially with the patient history of smoking. 3. O2 to keep saturation more than 94% 4. Continue antibiotic treatment 5. Nebulized treatment with albuterol and Atrovent every 6 hours as needed 6. If this patient discharged to follow-up with me in the next Laboratory Tests Test 05/10/24 16:32 05/10/24 19:50 05/11/24 04:38 05/11/24 05:04 Whole Blood Glucose 112 MG/DL (70-110) H 157 MG/DL (70-110) H 123 MG/DL (70-110) H White Blood Count 9.6 K/uL (4.8-10.8) # Red Blood Count 2.98 MIL/uL (4.50-6.20) L Hemoglobin 9.6 g/dL (14.0-18.0) L Hematocrit 29.7 % (42-54) L Mean Corpuscular Volume 99.7 fL (79-99) H Mean Corpuscular Hemoglobin 32.2 pg (27.0-33.0) Mean Corpuscular Hemoglobin Concent 32.3 g/dL (32.0-36.0) Red Cell Distribution Width 14.2 % (11.0-15.5) Platelet Count 225 K/uL (130-400) Mean Platelet Volume 9.9 fL (7.5-10.5) Nucleated Red Blood Cells 0.0 % (0.0-0.19) Sodium Level 140 mmol/L (136-145) Potassium Level 3.4 mmol/L (3.5-5.1) L Chloride Level 105 mmol/L (101-111) Carbon Dioxide Level 27 mmol/L (21-32) Blood Urea Nitrogen 8 mg/dL (7-18) Creatinine 0.8 mg/dL (0.5-1.3) Glomerular Filtration Rate Calc 91 mL/min (>90) Random Glucose 130 mg/dL (70-105) H Total Calcium 8.0 mg/dL (8.5-10.1) L Magnesium Level 1.50 mg/dL (1.80-2.40) L Test 05/11/24 11:06 Whole Blood Glucose 169 MG/DL (70-110) H LAB RESULTS 05/11/24 11:06: Whole Blood Glucose 169H 05/11/24 04:38: White Blood Count 9.6#, Red Blood Count 2.98L, Hemoglobin 9.6L, Hematocrit 29.7L, Mean Corpuscular Volume 99.7H, Mean Corpuscular Hemoglobin 32.2, Mean Corpuscular Hemoglobin Concent 32.3, Red Cell Distribution Width 14.2, Platelet Count 225, Mean Platelet Volume 9.9, Nucleated Red Blood Cells 0.0, Sodium Level 140, Potassium Level 3.4L, Chloride Level 105, Carbon Dioxide Level 27, Blood Urea Nitrogen 8, Creatinine 0.8, Glomerular Filtration Rate Calc 91, Random Glucose 130H, Total Calcium 8.0L, Magnesium Level 1.50L ALVIN COOK MD May 11, 2024 14:08
[2024-05-11] MEDS ORDERED: PoTASSium chl 10% ELIXIR 20MEQ 20 MEQ/15 ML UDCUP PO PRN (14:30)
[2024-05-11] MEDS ORDERED: PoTASSium chloRIDE 20MEQ/100ML 100 ML IV PRN (14:30)
--- NOTE | 2024-05-11 15:15 | PN ---
INFECTIOUS DISEASE PROGRESS NOTE Date of Service: May 11, 2024 SUBJECTIVE: Patient was seen and examined at bedside in room 319. Patient is awake, alert and oriented x 3. Patient is sitting up on the bedside chair. Continues with productive cough. Sputum culture preliminary reports growing Gram-negative rods. We will follow up on the final cultures. Dr. Smiley has evaluated patient for pulmonary nodules. Patient continues on ceftriaxone and doxycycline. The WBC has trended down to a normal level of 9.6. No reports of fever, temperature is 98.6. We will plan to discharge patient to home today. PHYSICAL EXAM EYES: Anicteric. Pupils equal and reactive. HENT: No oral thrush seen, moist Oral mucosa NECK: Supple, no JVD or thyromegaly. LUNGS: Good air entry. No rales, no rhonchi. CARDIOVASCULAR: S1, S2 regular. No murmur heard. ABDOMEN: Soft, non tender, bowel sounds present, no organomegaly CENTRAL NERVOUS SYSTEM: Awake, alert, oriented x 3. No focal deficits. SKIN: No rashes, no swelling. LYMPHATICS: No peripheral lymphadenopathy MUSCULOSKELETAL: No joint swelling, erythema or tenderness. EXTREMITIES: No cyanosis or clubbing BACK: No deformity, no pressure ulcer. GENITOURINARY: No dysuria or hematuria Vital Sign (Last 12 Hours) 05/11/24 05/11/24 05/11/24 05/11/24 04:00 07:30 08:00 11:49 Temp 98.8 98.8 98.6 Pulse 76 57 66 Resp 20 20 20 B/P (MAP) 150/75 143/56 121/57 Pulse Ox 97 99 98 99 O2 Delivery Room Air Room Air Room Air* Room Air O2 Flow Rate 0 FiO2 21 21 21 Intake & Output (last 24hrs) 05/10/24 05/10/24 05/11/24 15:00 23:00 07:00 Intake Total 50.0 ml Balance 50.0 ml LABS: Laboratory: Test 05/11/24 11:06 05/11/24 04:38 Range/Units Whole Blood Glucose 169 H 70-110 MG/DL White Blood Count 9.6 # 4.8-10.8 K/uL Red Blood Count 2.98 L 4.50-6.20 MIL/uL Hemoglobin 9.6 L 14.0-18.0 g/dL Hematocrit 29.7 L 42-54 % Mean Corpuscular Volume 99.7 H 79-99 fL Mean Corpuscular Hemoglobin 32.2 27.0-33.0 pg Mean Corpuscular Hemoglobin Concent 32.3 32.0-36.0 g/dL Red Cell Distribution Width 14.2 11.0-15.5 % Platelet Count 225 130-400 K/uL Mean Platelet Volume 9.9 7.5-10.5 fL Nucleated Red Blood Cells 0.0 0.0-0.19 % Sodium Level 140 136-145 mmol/L Potassium Level 3.4 L 3.5-5.1 mmol/L Chloride Level 105 101-111 mmol/L Carbon Dioxide Level 27 21-32 mmol/L Blood Urea Nitrogen 8 7-18 mg/dL Creatinine 0.8 0.5-1.3 mg/dL Glomerular Filtration Rate Calc 91 >90 mL/min Random Glucose 130 H 70-105 mg/dL Total Calcium 8.0 L 8.5-10.1 mg/dL Magnesium Level 1.50 L 1.80-2.40 mg/dL ASSESSMENT: Pneumonia. Sepsis. Leukocytosis, improving. Chronic tobacco use. Diabetes mellitus. Hypertension. PLAN: Discharge planning for tomorrow if stable. Continue ceftriaxone. Continue doxycycline p.o.. Glucometer checks a.c./hs and cover with insulin per sliding scale protocol. We will monitor electrolytes. This case was reviewed and discussed with my supervising physician and the above assessment and plan was formulated and agreed upon. ATTESTATION BY PHYSICIAN I have seen and examined the patient. I reviewed the documentation, medical dec ision making, and treatment plan as noted by the mid-level provider above. I agree with the findings and plan of care. DARIO WHITE MD, [facility] May 11, 2024 15:15
[2024-05-11] MEDS: PoTASSium chloRIDE 20MEQ ER 20 MEQ ERTAB PO PRN (17:30)
--- NOTE | 2024-05-11 23:48 | PN ---
INFECTIOUS DISEASE FOLLOWUP NOTE DATE OF SERVICE: 05/10/2024 SUBJECTIVE: The patient is seen and examined at bedside today. No fever or chills. Cough is better. No hemoptysis or pleuritic pain. Denied headache or dizziness. No palpitation or orthopnea. CT of the chest shows multiple peripheral nodules. Findings have been explained to the patient and the family at the bedside. PHYSICAL EXAMINATION: VITAL SIGNS: Temperature 96.9. EYES: No icterus. Pupils equal and reactive. HENT: No oral thrush seen. Moist oral mucosa. NECK: Supple, no JVD or thyromegaly. LUNGS: Good air entry. No rales, no rhonchi. CARDIOVASCULAR: S1, S2 regular. No murmur heard. ABDOMEN: Obese, soft, nontender. Bowel sounds present. CENTRAL NERVOUS SYSTEM: Awake, alert and oriented x 3. No focal deficits. SKIN: No rashes, no itchiness. LYMPHATIC: No peripheral lymphadenopathy. BACK: No deformity, no pressure ulcer. LABORATORY DATA: WBC 13.0, hemoglobin 9.4, platelet 234. Blood culture, no growth for 1 day. ASSESSMENT: A 79-year-old male presenting with cough, fever and chills. CURRENT PROBLEM: * Sepsis. * Pneumonia. * Diabetes mellitus. * Hypertension. * Lung nodules. * Chronic tobacco use. PLAN: * Continue ceftriaxone. * Continue doxycycline. * Oncology evaluation * Continue pain management. * Continue antidiabetic. * Monitor electrolytes. TID: [id number] RECEIPT: [id number]
[2024-05-12] MEDS: MAGNESIUM 2GM PREMIX 50ML 50 ML IV PRN (00:01)
[2024-05-12 04:00] VITALS: BP 146/86; PULSE 67; RESP 17; TEMP 98.6
[2024-05-12 05:54] LABS: BASOPHILS % (AUTO) 1.2 % (0.0-5.0); HEMATOCRIT 29.9 % (42-54); IMMATURE GRANULOCYTE ABSOLUTE 0.03 K/uL (0-1); LYMPHOCYTES % (AUTO) 24.8 % (21.0-51.0); MEAN CORPUSCULAR HGB CONC 32.8 g/dL (32.0-36.0); MEAN CORPUSCULAR VOLUME 97.7 fL (79-99); MONOCYTES # (AUTO) 0.5 K/uL (0.1-1.0); MONOCYTES % (AUTO) 6.6 % (3.0-13.0); PLATELET COUNT (AUTO) 252 K/uL (130-400); RED BLOOD CELL COUNT(AUTO) 3.06 MIL/uL (4.50-6.20); RED CELL DISTRIBUTION WIDTH 13.9 % (11.0-15.5)
[2024-05-12 06:01] LABS: CREATININE 0.8 mg/dL (0.5-1.3); MAGNESIUM 2.3 mg/dL (1.80-2.40); POTASSIUM 4.5 mmol/L (3.5-5.1)
[2024-05-12 08:00] VITALS: BP 116/59; PULSE 71; RESP 18; TEMP 99.2; O2SAT 98
[2024-05-12 12:00] VITALS: BP 136/64; PULSE 67; RESP 18; TEMP 98.2
--- NOTE | 2024-05-12 12:21 | PN ---
A 79-year-old male with history of chronic tobacco use, hypertension, diabetes mellitus, presented to the hospital with cough, fever and chills. The patient's T-max in the Emergency Room was 100.2. Symptoms started 3 days ago. Cough is productive of greenish sputum, but no hemoptysis or pleuritic pain. The patient's WBC on admission was 20,000. Chest x-ray shows infiltrates. No weight loss or night sweats. Denies sick contact. CT scan of the chest showed nodular density in the mid lung 1.0 cm. There was left lower lobe nodule 2.2 cm. There was bilateral infiltration with sign of COPD. This patient improved significantly and is sitting in the side of the bed with family member in the room. Patient continued to have cough not much productive according to him. There is no blood in the phlegm. There is plan to discharge this patient home today PHYSICAL EXAMINATION: GENERAL: Elderly male, awake, not in distress, afebrile to touch. VITAL SIGNS: Temperature 100.3, pulse 80, respiratory rate 20, BP 130/77. EYES: No icterus. Pupils equal and reactive. HENT: No oral thrush seen. Moist oral mucosa. NECK: Supple, no JVD or thyromegaly. LUNGS: Good air entry. No rales, no rhonchi. CARDIOVASCULAR: S1, S2 regular. No murmur heard. ABDOMEN: Full, soft, nontender. Bowel sound is present. CENTRAL NERVOUS SYSTEM: Awake, alert, oriented x 3. No focal deficits. SKIN: No rashes, no itchiness. LYMPHATIC: No peripheral lymphadenopathy. BACK: No deformity, no pressure ulcer. MUSCULOSKELETAL: No joint swelling, erythema or tenderness. Assessment 1. CT scan showing multiple nodule to the lung especially left more than right. There was also some infiltration on the lung which could be due to pneumonia. This patient is a heavy smoker. 2. COPD 3. Hypertension 4. Diabetes mellitus 5. Pneumonia 6. Peripheral vascular disease 7. Sepsis Plan 1.I reviewed the result of CT scan with the patient and family member. I told the patient that he have pneumonia at this time and he will be treated with antibiotic treatment. 2. This patient will be evaluated by CT scan or PET CT scan to be done in 6-8 weeks. If the patient continues to have nodule then we will do biopsy at that time. Differential diagnosis for this patient could be pneumonia versus metastatic disease versus primary lung cancer especially with the patient history of smoking. 3. O2 to keep saturation more than 94% 4. Continue antibiotic treatment 5. Nebulized treatment with albuterol and Atrovent every 6 hours as needed 6. If this patient discharged to follow-up with me in the next Vitals/Labs Vital Signs Date Time Temp Pulse Resp B/P (MAP) Pulse Ox O2 Delivery O2 Flow Rate FiO2 05/12/24 08:00 99.1 71 18 116/59 100 Room Air 21 05/11/24 19:58 0 Laboratory Tests 05/12/24 05:43 Medications Current Medications Sodium Chloride 1,000 ml @ 125 mls/hr ONCE ONCE IV Last administered on 05/08/24at 19:18; Start 05/08/24 at 18:30; Stop 05/09/24 at 02:29; Status DC Ceftriaxone Sodium 2 gm ONCE ONCE IVPB Last administered on 05/08/24at 19:42; Start 05/08/24 at 19:30; Stop 05/08/24 at 19:31; Status DC Sodium Chloride 1,000 ml @ 0 mls/hr ONCE ONCE IV Last administered on 05/08/24at 19:37; Start 05/08/24 at 19:30; Stop 05/08/24 at 19:31; Status DC Azithromycin 250 ml @ 125 mls/hr ONCE ONCE IV Last administered on 05/08/24at 21:29; Start 05/08/24 at 20:30; Stop 05/08/24 at 22:29; Status DC Ceftriaxone Sodium 1 gm Q24H IVPB Last administered on 05/11/24at 20:51; Start 05/08/24 at 21:30; Stop 05/18/24 at 21:29 Doxycycline Hyclate 100 mg BID PO Last administered on 05/12/24at 09:08; Start 05/09/24 at 09:00; Stop 05/19/24 at 08:59 Acetaminophen 650 mg Q4H PRN PO; Start 05/08/24 at 21:30; Stop 06/07/24 at 21:29 Ondansetron HCl 4 mg Q4H PRN PO; Start 05/08/24 at 21:30; Stop 06/07/24 at 21:29 Insulin Human Lispro INSULIN SLIDING SCAL... ACHS SQ; Start 05/09/24 at 07:30; Stop 06/08/24 at 07:29 Aspirin 81 mg DAILY PO Last administered on 05/12/24at 09:08; Start 05/10/24 at 09:00; Stop 06/09/24 at 08:59 Atorvastatin Calcium 40 mg DAILY PO Last administered on 05/12/24at 09:09; Start 05/10/24 at 09:00; Stop 06/09/24 at 08:59 Clopidogrel Bisulfate 75 mg DAILY PO Last administered on 05/12/24at 09:09; Start 05/10/24 at 09:00; Stop 06/09/24 at 08:59 Lisinopril 5 mg DAILY PO Last administered on 05/12/24at 09:09; Start 05/10/24 at 09:00; Stop 06/09/24 at 08:59 Metformin HCl 500 mg BID PO Last administered on 05/12/24at 09:09; Start 05/09/24 at 21:00; Stop 06/08/24 at 20:59 Metoprolol Succinate 25 mg DAILY PO Last administered on 05/12/24at 09:09; Start 05/10/24 at 09:00; Stop 06/09/24 at 08:59 Cilostazol 50 mg BIDAC PO Last administered on 05/12/24at 06:35; Start 05/09/24 at 16:30; Stop 06/08/24 at 16:29 Sodium Chloride 4 ml STK-MED ONCE IH Last administered on 05/09/24at 14:29; Start 05/09/24 at 14:11; Stop 05/09/24 at 14:12; Status DC Potassium Chloride 100 ml @ 100 mls/hr AD PRN IV; Start 05/11/24 at 14:30; Stop 06/10/24 at 14:29 Potassium Chloride 20 meq AD PRN PO; Start 05/11/24 at 14:30; Stop 06/10/24 at 14:29 Potassium Chloride 20 meq AD PRN PO Last administered on 05/12/24at 00:01; Start 05/11/24 at 14:30; Stop 06/10/24 at 14:29 Magnesium Sulfate 50 ml @ 0 mls/hr PROTOCOL PRN IV Last administered on 05/12/24at 00:01; Start 05/11/24 at 14:30; Stop 06/10/24 at 14:29 ALVIN COOK MD May 12, 2024 12:21
--- NOTE | 2024-05-12 19:53 | DS ---
DATE OF DISCHARGE: 05/12/2024 PRESENTING COMPLAINT: Cough and fever. HOSPITAL COURSE: This is a 79-year-old male with history of hypertension, diabetes mellitus, and chronic tobacco use, who presented to the hospital with cough and fever. The patient's cough is productive of greenish sputum. The patient was found with sepsis and was subsequently admitted. The patient was started on antibiotics, which include ceftriaxone and doxycycline. The patient had CT of the chest done, which shows multiple nodules. The patient has been seen by Oncology and plan is for an outpatient PET scan. The patient's WBC has normalized. Fever has resolved. Sputum culture came back with Pseudomonas aeruginosa. FINAL DISCHARGE DIAGNOSES: * Sepsis. * Pneumonia. * Diabetes mellitus. * Hypertension. * Chronic tobacco use. * Pulmonary nodules. * Obesity. PLAN: * The patient to be discharged home. * The patient will be given levofloxacin. * Continue antihypertensive. * Continue antidiabetic. * Follow up with oncologist. * Follow up with primary care physician. TID: [id number] RECEIPT: [id number]
== END 2024-05-12 15:05 | disposition home or self-care (01) | DRG 871 ==
LOC: EDH 18:19 → EDHIP 20:54 → 3CH 23:45
PROVIDERS: ADMIT Internal Medicine Infectious Disease; ATTEND Internal Medicine Infectious Disease
DX: A41.9 Sepsis, unspecified organism (principal); J18.9 Pneumonia, unspecified organism; J44.0 Chronic obstructive pulmonary disease with (acute) lower respiratory infection; E87.1 Hypo-osmolality and hyponatremia; E87.20 Acidosis, unspecified; E11.51 Type 2 diabetes mellitus with diabetic peripheral angiopathy without gangrene; I10 Essential (primary) hypertension; E66.9 Obesity, unspecified; N40.0 Benign prostatic hyperplasia without lower urinary tract symptoms; E78.00 Pure hypercholesterolemia, unspecified; D64.9 Anemia, unspecified; E87.8 Other disorders of electrolyte and fluid balance, not elsewhere classified; Z72.0 Tobacco use; Z83.3 Family history of diabetes mellitus; Z68.24 Body mass index [BMI] 24.0-24.9, adult
CPT/HCPCS: 36415; 71045; 71250; 80048; 80053; 81001; 82948; 83036; 83605; 83735; 83880; 84145; 84484; 85025; 85027; 87040; 87071; 87086; 87186; 87205; 87426; 87804; 93005; 94640; 96365; G0378; J0456; J0696; J3475

== ENCOUNTER → 2024-09-18 | Outpatient (CLI) | payer OTHER ==
[~2024-09-18] MED LIST changes: +ASPI-1005 PO; -ASPI-556 PO; -ATOR40TA69 PO; +ATOR40TA71 PO; -CILO100T3 PO; +CILO50TA2 PO; -METF-444 PO; +METF-910 PO; -TYLENOL ARTHRITIS PO
[2024-09-18 16:02] LABS: POTASSIUM 4.8 mmol/L (3.5-5.1)
== END | disposition home or self-care (01) ==
LOC: LAB 11:47
PROVIDERS: ATTEND Nurse Practitioner Acute Care
DX: I10 Essential (primary) hypertension (principal)
CPT/HCPCS: 36415; 80048